=== PATIENT | female | born 1935 | race Caucasian/White ===

== ENCOUNTER 2020-10-03 18:21 | Emergency (ER) | payer MEDICARE, BC ==
[~2020-10-03] VITALS: Ht 162.6 cm; Wt 65.9 kg
[~2020-10-03 18:21] MED LIST: ASPI-845 PO; ATEN25TA PO; CALC600T15 PO; CHOL10002 PO; LOSA100T57 PO; METF500T PO; MULT-620 PO; OMEP20CA15 PO; SIMV-42 PO; TRIA1TAB3 PO; WALKERFR
[2020-10-03 18:40] VITALS: BP 127/47
--- NOTE | 2020-10-03 19:37 | NUR ---
Pilar ojeda'ankit nixon called for update.
== END 2020-10-03 21:14 | disposition home or self-care (01) ==
LOC: ER 18:22
DX: S40.012A Contusion of left shoulder, initial encounter (principal); S70.01XA Contusion of right hip, initial encounter; M25.551 Pain in right hip; M19.90 Unspecified osteoarthritis, unspecified site; Z79.82 Long term (current) use of aspirin; Z79.84 Long term (current) use of oral hypoglycemic drugs; Z79.899 Other long term (current) drug therapy; W18.39XA Other fall on same level, initial encounter; Y93.89 Activity, other specified; Y92.89 Other specified places as the place of occurrence of the external cause; Y99.8 Other external cause status
CPT/HCPCS: 71045; 73060; 73502; 99284